=== PATIENT | female | born 1985 | race Caucasian/White ===

== ENCOUNTER 2019-07-22 09:13 | Emergency (ER) | payer BC ==
--- NOTE | 2019-07-22 10:01 | UC ---
Truncal Trauma HPI - HPI Summary HPI Summary: 34 yo female presents with right rib pain. She tells me about 1 month ago she had a cold and was doing a lot of coughing. Her cold symptoms improved, but she continued to have a dry cough. About 3 weeks ago she noticed some right midaxillary rib , anterior rib, and RUQ pain that was worse with movement or touching the area. Since that time the pain has continued. Is improved with ibuprofen and rest. Worse with coughing, deep breaths, truncal movement, or raising arms above head. She does smoke. Denies specific injury, SOB, chest pain , n/v, dysuria. She is eating and drinking well. - History Of Current Complaint Chief Complaint: UCGeneralIllness Stated Complaint: RT SIDED RIB PAIN Time Seen by Provider: 07/22/19 10:01 Hx Obtained From: Patient Hx Last Menstrual Period: 07/07/19 Onset/Duration: Sudden Onset Severity Initially: Moderate Severity Currently: Moderate Pain Intensity: 8 Pain Scale Used: 0-10 Numeric - Allergies/Home Medications Allergies/Adverse Reactions: Allergies Allergy/AdvReac Type Severity Reaction Status Date / Time No Known Allergies Allergy Verified 07/22/19 09:27 Home Medications: Home Medications Ketorolac TAB * [Toradol TAB *] 10 mg PO TID 5 Days #15 tab 07/22/19 [Rx] PMH/Surg Hx/FS Hx/Imm Hx - Additional Past Medical History Additional PMH: None - Surgical History Surgical History: Yes Surgery Procedure, Year, and Place: cysts removed from ovaries - Family History Known Family History: Positive: None - Social History Occupation: Employed Full-time Lives: With Family Alcohol Use: Occasionally Substance Use Type: None Smoking Status (MU): Heavy Every Day Tobacco Smoker Review of Systems All Other Systems Reviewed And Are Negative: No Constitutional: Positive: Negative Skin: Positive: Negative Eyes: Positive: Negative ENT: Positive: Negative Respiratory: Positive: Cough - resolved Cardiovascular: Positive: Negative Gastrointestinal: Positive: Abdominal Pain - RUQ Genitourinary: Positive: Negative Neurovascular: Positive: Negative Musculoskeletal: Positive: Other: - Right rib pain Neurological/Mental Status: Positive: Negative Psychological: Positive: Negative Physical Exam - Summary Physical Exam Summary: GENERAL: NAD. WDWN. No pain distress. SKIN: No rashes, sores, or open wounds. HEENT: Head: AT/NC Eyes: PERRLA. EOM intact. Conjunctiva clear without inflammation or discharge. Ears: Hearing grossly normal. TMs intact, no bulging, erythema, or edema. Nose: Nasal mucosa pink and moist. NTTP maxillary and frontal sinus. Throat: Posterior oropharynx without exudates, erythema, or tonsillar enlargement. Uvula midline. NECK: Supple. Nontender. No lymphadenopathy. CHEST: CTAB. No r/r/w. No accessory muscle use. Breathing comfortably and in no distress. CV: RRR. Pulses intact. Brisk cap refill. ABDOMEN: Soft. Mild TTP RUQ. No distention or guarding. No CVA tenderness. Bowel sounds present MSK: FROM and 5/5 strength throughout. No edema. RIGHT RIBS: ~9th rib midaxillary and anterior rib with ttp. Pain reproduced with UE movement and truncal twisting. NEURO: Alert. PSYCH: Age appropriate behavior. Triage Information Reviewed: Yes Vital Signs: Initial Vital Signs Temp 98 F 07/22/19 09:23 Pulse 90 07/22/19 09:23 Resp 17 07/22/19 09:23 BP 125/83 07/22/19 09:23 Pulse Ox 100 07/22/19 09:23 Vital Signs Reviewed: Yes Diagnostics - Radiology US RUQ Radiology Interpretation Completed By: Radiologist Summary of Radiographic Findings: FINDINGS: LIVER: The liver is normal in shape , contour, and echogenicity. There are no focal parenchymal masses. There is normal hepatopedal flow of the portal vein on Doppler imaging. The liver measures 16.0 cm in length. BILIARY TREE: There is no intrahepatic or extrahepatic biliary dilatation. The common hepatic duct measures 0.3 cm. The common bile duct measures 0.5 cm. GALLBLADDER: The gallbladder is well- visualized. There is no cholelithiasis, gallbladder wall thickening, pericholecystic fluid, or sonographic Garcia sign. PANCREAS: The head of the pancreas is unremarkable. The tail of the pancreas is not well visualized secondary to overlying bowel gas. RIGHT KIDNEY: The right kidney is normal in shape, size, contour, and echogenicity. There is no hydronephrosis or nephrolithiasis. The right kidney measures 11.8 cm x 5.6 cm x 4.3 cm. AORTA AND IVC: The aorta and IVC are unremarkable. FLUID: There are no pleural effusions. There is no free fluid within the hepatorenal recess. OTHER FINDINGS: None. IMPRESSION: NO ACUTE SONOGRAPHIC PATHOLOGY OF THE VISUALIZED PORTION OF THE ABDOMEN. CXR Radiology Interpretation Completed By: Radiologist Summary of Radiographic Findings: IMPRESSION: No fracture of the right ribs is noted. Truncal Trauma Course/Dx - Course Course Of Treatment: US negative. Rib and CXR negative. PERC score 0. In the clinic pt was given toradol IM for her discomfort with good relief. Suspect intercostal strain/pleurisy. Advised to rest, ice/heat, and will rx for NSAIDs. Recheck if symptoms do not improve. - Differential Dx/Diagnosis Differential Diagnosis/HQI/PQRI: Pneumothorax, Rib Fracture, Other - Cholecystitis. PNA. Provider Diagnosis: Intercostal muscle strain, RUQ pain Discharge ED - Sign-Out/Discharge Documenting (check all that apply): Patient Departure All imaging exams completed and their final reports reviewed: Yes - Discharge Plan Condition: Stable Disposition: HOME Prescriptions: Ketorolac TAB * [Toradol TAB *] 10 mg PO TID 5 Days #15 tab Patient Education Materials: Pleurisy (ED), Costochondritis (ED) Forms: *Work Release Referrals: No Primary Care Phys,NOPCP [Primary Care Provider] - Additional Instructions: If you develop a fever, shortness of breath, chest pain, new or worsening symptoms - please call your PCP or go to the ED immediately. Apply ice/heat to your area of discomfort for pain relief Do not take ibuprofen/motrin/aleve with the Ketorlac as these medications are related and may interact - Billing Disposition and Condition Condition: STABLE Disposition: Home
[2019-07-22] MEDS ORDERED: Ketorolac *IM* INJ* 60 MG/2 ML VIAL IM ONE (10:13)
[2019-07-22 11:46] VITALS: BP 127/92
== END 2019-07-22 11:42 | disposition home or self-care (01) ==
LOC: UCEAST 09:13
DX: S29.011A Strain of muscle and tendon of front wall of thorax, initial encounter (principal); R10.11 Right upper quadrant pain; F17.290 Nicotine dependence, other tobacco product, uncomplicated; X58.XXXA Exposure to other specified factors, initial encounter; Y92.9 Unspecified place or not applicable
CPT/HCPCS: 76705; 96372; 99202; G0463; J1885

== ENCOUNTER 2022-04-06 03:46 | Inpatient (IN) ==
[2022-04-06] MEDS ORDERED: Buffered Lidocaine 1% SYRIN 1 ml INTRADERM ONE ×2 (04:05→06:02)
[2022-04-06] MEDS ORDERED: Lactated Ringers 1000 ml BAG 1,000 ML IV ONE (06:02)
[2022-04-06 06:38] LABS: ABS Basophils 0.1 10^3/ul (0-0.2); ABS Eosinophils 0.6 10^3/ul (0-0.6); ABS Lymphocytes 3.4 10^3/ul (1.0-4.8); ABS Monocytes 0.7 10^3/ul (0-0.8); ABS Neutrophils 8.8 10^3/ul (1.5-7.7); Eosinophil % 4.3 %; Hematocrit 38 % (35-47); Hemoglobin 12.5 g/dL (12.0-16.0); Lymphocyte % 24.9 %; Mean Corpuscular HGB Conc 33 g/dL (31-36); Mean Corpuscular Hemoglobin 29 pg (27-31); Mean Corpuscular Volume 87 fL (80-97); Mean Platelet Volume 8.9 fL (7.4-10.4); Platelet Count 327 10^3/uL (150-450); Red Blood Count 4.33 10^6 /uL (3.70-4.87); Red Cell Distribution Width 14 % (10-15); White Blood Count 13.5 10^3/uL (3.5-10.8)
[2022-04-06] MEDS ORDERED: Lactated Ringers 1000 ml BAG 1,000 ML IV SCH (07:00)
[2022-04-06 07:14] LABS: Albumin 3.4 g/dL (3.2-5.2); Albumin/Globulin Ratio 1.3 (1-3); Calcium 8.8 mg/dL (8.6-10.3); Globulin 2.6 g/dL (2-4); Potassium 4.5 mmol/L (3.5-5.0); Total Bilirubin 0.3 mg/dL (0.2-1.0); Uric Acid 4.6 mg/dL (2.3-6.6)
[2022-04-06 07:26] LABS: Urine Appearance Cloudy; Urine Bilirubin Negative (Negative); Urine Blood 1+ (Negative); Urine Color Straw; Urine Glucose Negative (Negative); Urine Ketones Negative (Negative); Urine Nitrite Negative (Negative); Urine Protein Negative (Negative); Urine Specific Gravity 1.008 (1.002-1.030); Urine Urobilinogen Negative (Negative)
[2022-04-06 07:29] LABS: Urine Bacteria 1+ (Absent); Urine Red Blood Cell 3+(>10/hpf) (Absent); Urine Squamous Epithelial Cell Present (Absent); Urine White Blood Cell Trace(0-5/hpf) (Absent)
[2022-04-06 07:41] LABS: Urine Benzodiazepine Screen None Detected (None Detect); Urine Cannabinoids Screen None Detected (None Detect); Urine Opiates Screen None Detected (None Detect)
[2022-04-06] MEDS ORDERED: Promethazine INJ(RESTRICTED) 25 MG/ML 1 ml VIAL IV ONE (21:21)
[2022-04-06] MEDS ORDERED: Nalbuphine 10 MG/ML 1 ML VIAL IV ONE (21:21)
[2022-04-07] MEDS ORDERED: OBEPIDURAL (200 ML) 0 ML EPIDURAL ONE (02:07)
[2022-04-07] MEDS ORDERED: EPINEPHrine SULFITE FREE 1 MG/ML ONE (02:15)
[2022-04-07] MEDS ORDERED: Lidocaine 1% VIAL 10 MG/ML VIAL 30 ML ONE (02:15)
[2022-04-07] MEDS ORDERED: Dibucaine 1% OINT 28.35 GM TUBE ONE (05:17)
[2022-04-07] MEDS ORDERED: Witch Hazel PAD JAR ONE (05:17)
[2022-04-07] MEDS ORDERED: Glycerin ADULT 2.4 gm SUPP PR PRN (05:35)
[2022-04-07] MEDS ORDERED: Witch Hazel PAD JAR TOPICAL PRN (05:35)
[2022-04-07] MEDS ORDERED: Dibucaine 1% OINT 28.35 GM TUBE PR PRN (05:35)
[2022-04-07] MEDS ORDERED: Oxytocin 10 UNITS/ML 1 ML VIAL IM ONE (05:35)
[2022-04-07] MEDS ORDERED: Lactated Ringers 1000 ml BAG 1,000 ML IV SCH (06:00)
[2022-04-08 07:06] LABS: ABS Basophils 0.1 10^3/ul (0-0.2); ABS Eosinophils 0.3 10^3/ul (0-0.6); ABS Lymphocytes 3.5 10^3/ul (1.0-4.8); ABS Monocytes 1.1 10^3/ul (0-0.8); ABS Neutrophils 8.3 10^3/ul (1.5-7.7); Eosinophil % 2.3 %; Hematocrit 32 % (35-47); Hemoglobin 10.6 g/dL (12.0-16.0); Lymphocyte % 26.4 %; Mean Corpuscular HGB Conc 34 g/dL (31-36); Mean Corpuscular Hemoglobin 29 pg (27-31); Mean Corpuscular Volume 88 fL (80-97); Mean Platelet Volume 8.6 fL (7.4-10.4); Platelet Count 285 10^3/uL (150-450); Red Blood Count 3.61 10^6 /uL (3.70-4.87); Red Cell Distribution Width 14 % (10-15); White Blood Count 13.3 10^3/uL (3.5-10.8)
[2022-04-08 14:28] VITALS: BP 146/89
== END 2022-04-08 17:21 | disposition home or self-care (01) | DRG 560 ==
LOC: MCHOBOUT 03:46 → MCHOB 05:25
PROVIDERS: ADMIT Midwife; ATTEND Midwife